=== PATIENT | female | born 1990 | race Caucasian/White ===

== ENCOUNTER 2017-07-23 14:00 | Emergency (ER) | payer MEDICAID, SELFPAY ==
[2017-07-23] MEDS ORDERED: Metoclopramide HCl 10 MG/2 ML VIAL ONE (15:07)
== END 2017-07-23 16:02 | disposition home or self-care (01) ==
LOC: ERS 14:00
DX: O99.351 Diseases of the nervous system complicating pregnancy, first trimester (principal); G43.909 Migraine, unspecified, not intractable, without status migrainosus; O99.281 Endocrine, nutritional and metabolic diseases complicating pregnancy, first trimester; E03.9 Hypothyroidism, unspecified; O99.331 Smoking (tobacco) complicating pregnancy, first trimester; F17.210 Nicotine dependence, cigarettes, uncomplicated; Z3A.10 10 weeks gestation of pregnancy
CPT/HCPCS: 96361; 96374; J2765

== ENCOUNTER 2017-09-27 13:40 | Outpatient (CLI) | payer OTHER | END 2017-09-27 13:41 | disposition home or self-care (01) | LOC: BICULT 13:40 | PROVIDERS: ATTEND Family Medicine | DX: Z34.82 Encounter for supervision of other normal pregnancy, second trimester (principal); Z3A.20 20 weeks gestation of pregnancy | CPT/HCPCS: 76805 ==

== ENCOUNTER 2018-02-14 20:33 | Day surgery (SDC) | payer OTHER ==
[2018-02-14 21:21] VITALS: BMI 34.2
--- NOTE | 2018-02-14 21:34 | PDOC.LDHP ---
Labor and Delivery H&P Chief complaint: contractions HPI: 27 y/o at 40w3d, patient of Dr. Stephanie Coates, presents with ctx since her appointment and stronger since 2pm. Denies VB, LOF, or decreased FM. Was /-2 in clinic. ROS neg for HEENT, cv, pulm, gi, gu, neuro, psych, skin, musculoskeletal, or constitutional symptoms other than mentioned above. OB History Details: 3 prior SVDs Current complications: none Past Medical History: None Current medications: pre- vitamins Previous surgical history: none Allergies/Adverse Reactions: Allergies Allergy/AdvReac Type Severity Reaction Status Date / Time No Known Allergies Allergy Unverified 12/07/12 22:04 Social history: none - Physical Exam Vital signs reviewed and normal: yes General: NAD, resting Lungs: nonlabored breathing Abdomen: gravid Extremeties: no edema FHT: category 1 (140s, mod variability, + accels, no decels) [place] contractions every: q 3-4 mins - Vaginal Exam cm dilated: 4 Effacement: 90% Station: -2 - Assessment 27 y/o at 40w3d with no e/o active labor. status reassuring with reactive NST. - Plan -: D/c home with precautions. Advised to keep all appointments and continue daily activity counts.
== END 2018-02-14 23:10 | disposition home or self-care (01) ==
LOC: L&D/OP 20:33
PROVIDERS: ATTEND Family Medicine
DX: O47.1 False labor at or after 37 completed weeks of gestation (principal); Z3A.40 40 weeks gestation of pregnancy
CPT/HCPCS: 99283